=== PATIENT | female | born 1965 | race Caucasian/White ===

== ENCOUNTER 2023-01-06 14:16 | Outpatient (CLI) | payer OTHER, SELFPAY | END 2023-01-06 14:17 | disposition home or self-care (01) | PROVIDERS: Visit Provider Family Medicine | DX: Z00.00 Encounter for general adult medical examination without abnormal findings (principal); E03.9 Hypothyroidism, unspecified; E66.01 Morbid (severe) obesity due to excess calories; R53.83 Other fatigue; R63.5 Abnormal weight gain; Z13.1 Encounter for screening for diabetes mellitus; Z13.6 Encounter for screening for cardiovascular disorders | CPT/HCPCS: 80053; 80061; 84439; 84443 ==

== ENCOUNTER 2023-02-10 13:00 | Outpatient (CLI) | payer OTHER, SELFPAY | END 2023-02-10 13:01 | disposition home or self-care (01) | LOC: NFLDREF 02-11 07:56 | PROVIDERS: PCP Family Medicine; Referring Provider Family Medicine; Visit Provider Family Medicine | DX: E03.9 Hypothyroidism, unspecified (principal) | CPT/HCPCS: 84443 ==

== ENCOUNTER 2024-01-03 07:28 | Outpatient (CLI) | payer OTHER, SELFPAY | END 2024-01-03 07:29 | disposition home or self-care (01) | LOC: NFLDREF 01-07 15:01 | PROVIDERS: PCP Physician Assistant Medical; Referring Provider Physician Assistant Medical; Visit Provider Physician Assistant Medical | DX: E03.9 Hypothyroidism, unspecified (principal); Z83.3 Family history of diabetes mellitus; Z13.220 Encounter for screening for lipoid disorders; Z13.228 Encounter for screening for other metabolic disorders | CPT/HCPCS: 80053; 80061; 84443 ==

== ENCOUNTER 2024-08-29 07:14 | Outpatient (CLI) | payer OTHER, SELFPAY | END 2024-08-29 07:15 | disposition home or self-care (01) | LOC: NFLDREF 09-04 01:48 | PROVIDERS: PCP Physician Assistant Medical; Referring Provider Physician Assistant Medical; Visit Provider Physician Assistant Medical | DX: N39.0 Urinary tract infection, site not specified (principal); B96.20 Unspecified Escherichia coli [E. coli] as the cause of diseases classified elsewhere | CPT/HCPCS: 87086 ==

== ENCOUNTER 2024-12-13 13:35 | Outpatient (CLI) | payer OTHER, SELFPAY | END 2024-12-13 13:36 | disposition home or self-care (01) | LOC: NFLDREF 12-20 00:50 | PROVIDERS: PCP Physician Assistant Medical; Referring Provider Physician Assistant Medical; Visit Provider Physician Assistant Medical | DX: E03.9 Hypothyroidism, unspecified (principal); R53.83 Other fatigue; R63.5 Abnormal weight gain; E55.9 Vitamin D deficiency, unspecified | CPT/HCPCS: 82306; 82607; 82728; 84439; 84443 ==

== ENCOUNTER 2025-04-04 09:21 | Outpatient (CLI) | payer OTHER, SELFPAY | END 2025-04-04 09:22 | disposition home or self-care (01) | LOC: NFLDREF 04-05 12:21 | PROVIDERS: PCP Physician Assistant Medical; Referring Provider Physician Assistant Medical; Visit Provider Physician Assistant Medical | DX: E03.9 Hypothyroidism, unspecified (principal); E55.9 Vitamin D deficiency, unspecified; E53.8 Deficiency of other specified B group vitamins | CPT/HCPCS: 82306; 82607; 84439; 84443 ==

== ENCOUNTER 2025-07-11 11:49 | Outpatient (CLI) | payer OTHER, SELFPAY | END 2025-07-11 11:50 | disposition home or self-care (01) | PROVIDERS: PCP Physician Assistant Medical; Referring Provider Physician Assistant Medical; Visit Provider Physician Assistant Medical | DX: E03.9 Hypothyroidism, unspecified (principal) | CPT/HCPCS: 84443 ==